=== PATIENT | female | born 1960 | race Caucasian/White ===

== ENCOUNTER 2019-01-14 11:52 | Emergency (ER) | payer BC, OTHER ==
[~2019-01-14] VITALS: Ht 172.7 cm; Wt 99.8 kg
[~2019-01-14 11:52] MED LIST: CEPH500 PO; CETI10 PO; CITA20 PO; HYDCHL50 PO; LORA10ER PO; OXYACE5T PO; POTCHL20ER PO; PRAM.5 PO; PROM25 PO; SULTRIDS PO; TRAZ100 PO; VENL37.5 PO
[2019-01-14] MEDS ORDERED: TRAZ100 (11:56)
[2019-01-14 13:37] LABS: BASOPHILS ABSOLUTE AUTO 0.03 K/mm3 (0.00-0.23); BASOPHILS PERCENT AUTO 0 % (0-2); EOSINOPHILS PERCENT AUTO 1 % (0-6); Hematocrit 46.6 % (33.0-51.0); Hemoglobin 15.4 g/dL (11.5-16.0); IMMATURE GRAN ABSOLUTE AUTO 0.02 K/mm3 (0.00-0.10); IMMATURE GRAN PERCENT AUTO 0 % (0-1); LYMPHOCYTES ABSOLUTE AUTO 1.22 K/mm3 (0.84-5.20); LYMPHOCYTES PERCENT AUTO 14 % (21-46); MONOCYTES PERCENT AUTO 7 % (4-13); Mean Corpuscular Volume 91 fL (80-100); Mean Platelet Volume 9.5 fL (9.1-12.4); NEUTROPHILS ABSOLUTE AUTO 6.69 K/mm3 (1.96-9.15); NEUTROPHILS PERCENT AUTO 77 % (41-73); Platelet Count 326 K/mm3 (150-400); RDW Standard Deviation 43.5 fL (35.1-46.3); Red Blood Cell Count 5.13 M/mm3 (3.80-5.20); White Blood Cell Count 8.66 K/mm3 (4.00-11.30)
[2019-01-14 13:49] LABS: Anion Gap 4 mmol/L (6-16); Blood Urea Nitrogen 22 mg/dL (8-24); Bun/Creatinine Ratio 28.8 (12.0-20.0); CO2, Blood 29 mmol/L (21-32); Calcium, Blood 9.2 mg/dL (8.5-10.1); Chloride, Blood 109 mmol/L (98-108); Creatinine, Blood 0.76 mg/dL (0.40-1.00); Glomerular Filtration Rate >60 (60-); Glucose, Blood 100 mg/dL (70-99); Potassium, Blood 3.9 mmol/L (3.5-5.5); Sodium, Blood 142 mmol/L (136-145)
[2019-01-14] MEDS ORDERED: Augmentin 875-1 EACH PO (15:00)
== END 2019-01-14 15:14 | disposition home or self-care (01) ==
LOC: ER 11:52
PROVIDERS: Physician Assistant
DX: K11.20 Sialoadenitis, unspecified (principal); G47.00 Insomnia, unspecified; F17.200 Nicotine dependence, unspecified, uncomplicated; Z88.6 Allergy status to analgesic agent; Z79.899 Other long term (current) drug therapy
CPT/HCPCS: 36415; 70491; 80048; 85025; 99284-25; Q9967

== ENCOUNTER → 2019-11-25 | Outpatient (CLI) | payer BC, OTHER ==
[~2019-11-25] MED LIST changes: +Augmentin 875-1 EACH PO; +TRAZ100
== END | disposition home or self-care (01) ==
LOC: PLD 13:18 → LAB SHORT 13:18
DX: B35.1 Tinea unguium (principal); L60.2 Onychogryphosis
CPT/HCPCS: 88305; 88312

== ENCOUNTER 2020-07-16 19:16 | Emergency (ER) | payer BC, OTHER ==
[~2020-07-16] VITALS: Ht 172.7 cm; Wt 83.9 kg
[2020-07-16] MEDS ORDERED: PRAM.125 PO (19:34)
[2020-07-16] MEDS ORDERED: AMOCLA875 PO (21:23)
== END 2020-07-16 21:30 | disposition home or self-care (01) ==
LOC: ER 19:16
DX: K11.8 Other diseases of salivary glands (principal); F17.210 Nicotine dependence, cigarettes, uncomplicated; Z88.6 Allergy status to analgesic agent; Z79.899 Other long term (current) drug therapy
CPT/HCPCS: 99283; A9270

== ENCOUNTER 2021-02-06 08:40 | Day surgery (SDC) | payer BC, OTHER ==
[~2021-02-06] VITALS: Ht 172.7 cm; Wt 82.7 kg
[~2021-02-06 08:40] MED LIST changes: +AMOCLA875 PO; +PRAM.125 PO; +PRAV20 PO; -TRAZ100
--- NOTE | 2021-02-06 09:07 | NUR ---
Ambulatory in Day Surgery History, Chart, Medications and Allergies reviewed before start of procedure.Patient States Post-Procedure ride home has been arranged. Pre-Op teaching done. Pt verbalizes understanding.
--- NOTE | 2021-02-06 09:53 | NUR ---
02/06/21 0953 Georgie Murray History, Chart, Medications and Allergies reviewed before start of procedure. Patient confirms NPO status and agrees with scheduled surgery. 3-LEAD EKG REVIEWED WITH PHYSICIAN PRIOR TO START OF PROCEDURE. MONITOR INTACT WITH CONTINUOUS PULSE OXIMETRY AND INTERMITTENT BP. PATIENT DETERMINED TO BE ASA APPROPRIATE FOR PROPOFOL SEDATION PRIOR TO START OF PROCEDURE BY DR. CARMONA.
--- NOTE | 2021-02-06 10:55 | NUR ---
Patient up to Ambulate independently. Gait steady. Discharge instructions reviewed with patient. Patient verbalizes understanding. Copy given to patient to take home, ALSO WENT OVER WITH FAMILY. Patient States Post-Procedure ride home has been arranged. Discharged via wheelchair to private car for ride home.
== END 2021-02-06 10:59 | disposition home or self-care (01) ==
LOC: ORSCMMR 08:40 → ORD 02-07 09:00
PROVIDERS: Internal Medicine Gastroenterology
PROC: 0DBC8ZX Excision of Ileocecal Valve, Via Natural or Artificial Opening Endoscopic, Diagnostic (ICD-10-PCS; principal; 2021-02-06 09:30)
PROC: 0DBL8ZX Excision of Transverse Colon, Via Natural or Artificial Opening Endoscopic, Diagnostic (ICD-10-PCS; principal; 2021-02-06 09:30)
PROC: 0DBN8ZX Excision of Sigmoid Colon, Via Natural or Artificial Opening Endoscopic, Diagnostic (ICD-10-PCS; principal; 2021-02-06 09:30)
PROC: 0DBK8ZX Excision of Ascending Colon, Via Natural or Artificial Opening Endoscopic, Diagnostic (ICD-10-PCS; principal; 2021-02-06 09:30)
PROC: 0DBP8ZX Excision of Rectum, Via Natural or Artificial Opening Endoscopic, Diagnostic (ICD-10-PCS; principal; 2021-02-06 09:30)
DX: R19.7 Diarrhea, unspecified (principal); K62.1 Rectal polyp; D12.2 Benign neoplasm of ascending colon; J45.909 Unspecified asthma, uncomplicated; E78.00 Pure hypercholesterolemia, unspecified; G25.81 Restless legs syndrome; Z79.899 Other long term (current) drug therapy; F17.210 Nicotine dependence, cigarettes, uncomplicated; K64.4 Residual hemorrhoidal skin tags
CPT/HCPCS: 88305; J2704; J7120

== ENCOUNTER → 2022-07-09 | Outpatient (CLI) | payer OTHER | END | disposition home or self-care (01) | LOC: PLD 08:33 → LAB SHORT 08:33 | DX: L60.2 Onychogryphosis (principal); B35.1 Tinea unguium | CPT/HCPCS: 88305; 88312 ==

== ENCOUNTER 2023-02-14 10:04 | Day surgery (SDC) | payer OTHER ==
[2023-02-14] VITALS (8 sets, daily range): BP systolic 161–188; BP diastolic 74–100
[~2023-02-14] VITALS: Ht 172.7 cm; Wt 92.0 kg
[~2023-02-14 10:04] MED LIST changes: +CEPHALEXIN500 M1 PO
--- NOTE | 2023-02-14 10:42 | NUR ---
Ambulatory in Day Surgery History, Chart, Medications and Allergies reviewed before start of procedure. Pre-Op teaching done. Pt verbalizes understanding. Patient States Post-Procedure ride home has been arranged with [facility].
--- NOTE | 2023-02-14 12:31 | NUR ---
PT UNABLE TO GIVE A PAIN SCORE, CURRENTLY SITTING ON A BEDPAN, STATES "I HAVE TO PEE CONSTANTLY AND THIS IS NOT NEW"
--- NOTE | 2023-02-14 13:15 | NUR ---
PT UP TO BR AGAIN AFTER GETTING DRESSED. Patient up to Ambulate independently. Gait steady. Discharge instructions reviewed with patient. Patient verbalizes understanding. Copy given to patient to take home. PT'S BP HAS BEEN ELEVATED TODAY. PT STATES "IT DOES THAT IN CERTAIN SITUATIONS" PT STATES SHE HAS A BP CUFF AT HOME, PT ENCOURAGED TO RE-CHECK AT HOME WHEN SHE IS FEELING LESS PAINFUL AND MORE RELAXED AND TO NOTIFY HER MD IF IT CONTINUES TO REMAIN HIGH. ROSS CARE BOTTLE GIVEN W/INSTRUCTIONS Discharged via wheelchair to private car for ride home W/
== END 2023-02-14 13:15 | disposition home or self-care (01) ==
LOC: ORSCMMR 10:04 → ORD 11:15 → ORSCMMR 13:15
PROVIDERS: Obstetrics & Gynecology
PROC: 0UDB8ZX Extraction of Endometrium, Via Natural or Artificial Opening Endoscopic, Diagnostic (ICD-10-PCS; principal; 2023-02-14 11:15)
DX: N95.0 Postmenopausal bleeding (principal); N84.0 Polyp of corpus uteri; R93.89 Abnormal findings on diagnostic imaging of other specified body structures; I10 Essential (primary) hypertension; F17.210 Nicotine dependence, cigarettes, uncomplicated; Z79.899 Other long term (current) drug therapy
CPT/HCPCS: 88305; A9270; J0690; J1100; J1885; J2405; J2704; J3010; J7120